=== PATIENT | female | born 1960 | race Caucasian/White ===

== ENCOUNTER 2016-06-29 20:36 | Emergency (ER) | payer BC ==
[2016-06-29 20:41] VITALS: BP 154/108; PULSE 120; TEMP 98.2; BMI 27.4
--- NOTE | 2016-06-29 20:46 | PDOC ---
[id number] 55 year old female who is presenting to the ED intoxicated s/p fall. Tonight the patient had several drinks of vodka and she fell, injuring her face. The patient presents with several lacerations along her nose and above her lip and a contusion to her forehead. The patient states she is an alcoholic. PAST MEDICAL HISTORY: alcoholism PAST SURGICAL HISTORY: no significant history FAMILY HISTORY: no pertinent history SOCIAL HISTORY: Pt lives with family and is employed. MEDICATIONS: reviewed ALLERGIES: As per nursing notes General: No fevers or chills, no weakness, no weight loss HEENT: Lacerations to the face, forehead bruising. No change in vision. No sore throat,. No ear pain CardioVascular: No chest pain or shortness of breath Respiratory:No cough, or wheezing. Gastrointestinal: no nausea, vomiting, diarrhea or constipation, No rectal bleeding Genitourinary: No dysuria, hematuria, or frequency Musculoskeletal: No joint or muscle pain or swelling Neurologic: No headache, vertigo, dizziness or loss of consciousness Psychiatric: nor depression Skin: No rashes or easy bruising Endocrine: no increased thirst or abnormal weight change Allergic: no skin or latex allergy All other systems reviewed and normal GENERAL: Alcohol on breath, intoxicated. The patient is awake, alert, and fully oriented, in no acute distress. HEAD: Contusion of the forehead. Small avulsion over the bridge of the nose with some tenderness of the nasal bones, no deformity. 4cm superficial laceration the length of the nose with no active bleeding. Superficial laceration from the opening of the left nare to the vermilion boarder of the upper lip with venous oozing. Teeth are intact. EYES: Pupils equal, round and reactive to light, extraocular movements intact, sclera anicteric, conjunctiva clear. MUSCULOSKELETAL: No sign of injury to the trunk. EXTREMITIES: No sign of injury to the extremities. Normal range of motion, no edema. NEUROLOGICAL: Normal speech, normal gait. PSYCH: Normal mood, normal affect. SKIN: Warm, Dry, normal turgor, no rashes or lesions noted. <Litzy Tobin - Last Filed: 06/29/16 21:15> - General History Source: Patient Exam Limitations: Intoxication - History of Present Illness Initial Comments: 06/29/16 21:26 Procedure note: Laceration repair with Dermabond. It is noted that patient refused laceration repair with sutures. Patient initially refused any laceration repair however I was able to convince her to let me close the lacerations with Dermabond. Lacerations were cleaned with some peroxide and then closed with Dermabond patient tolerated well. A portion of this note was documented by scribe services under my direction. I have reviewed the details of the note, within reason, and agree with the documentation. The case summary and management plan written by me. 06/29/16 22:46 CT head shows no acute intracranial pathology CT facial bones shows no acute fractures 03:00 Patient awake alert with steady gait was observed in the emergency room for 6 hours. Patient without any additional complaints. Patient called a taxi and discharged home <Padmaja Avalos I - Last Filed: 07/04/16 02:00> - General Chief Complaint: Injury Stated Complaint: FALL/INTOX Time Seen by Provider: 06/29/16 20:45 Past History <Litzy Tobin - Last Filed: 06/29/16 21:15> - Past Medical History Other medical history: DENIES - Psycho/Social/Smoking Cessation Hx Anxiety: No Suicidal Ideation: No Smoking History: Never smoked <Padmaja Avalos I - Last Filed: 07/04/16 02:00> - Past Medical History Allergies/Adverse Reactions: Allergies Allergy/AdvReac Type Severity Reaction Status Date / Time No Known Allergies Allergy Unverified 06/29/16 20:38 Home Medications: Ambulatory Orders NK [No Known Home Medication] 06/29/16 *Physical Exam - Vital Signs Last Vital Signs Temp Pulse Resp BP Pulse Ox 98.2 F 120 H 18 154/108 99 06/29/16 20:39 06/29/16 20:39 06/29/16 20:39 06/29/16 20:39 06/29/16 20:39 <Litzy Tobin - Last Filed: 06/29/16 21:15> - Vital Signs Last Vital Signs Temp Pulse Resp BP Pulse Ox 98.2 F 120 H 18 154/108 99 06/29/16 20:39 06/29/16 20:39 06/29/16 20:39 06/29/16 20:39 06/29/16 20:39 <Padmaja Avalos I - Last Filed: 07/04/16 02:00> ED Treatment Course - LABORATORY CBC & Chemistry Diagram: 06/29/16 21:10 06/29/16 21:10 <Padmaja Avalos I - Last Filed: 07/04/16 02:00> *DC/Admit/Observation/Transfer - Attestations Scribe Attestion: 06/29/16 21:20 Documentation prepared by Litzy Tobin, acting as medical billing coordinator for Padmaja Avalos MD. <Litzy Tobin - Last Filed: 06/29/16 21:15> - Discharge Dispostion Admit: No <Padmaja Avalos I - Last Filed: 07/04/16 02:00> Diagnosis at time of Disposition: Intoxication - Discharge Dispostion Disposition: HOME Condition at time of disposition: Stable - Patient Instructions Printed Discharge Instructions: DI for Laceration Repair With Dermabond Additional Instructions: Read over and follow the Dermabond instructions. Return to the emergency department immediately with ANY new, persistent or worsening symptoms. Continue any medications as previously prescribed by your physician. You should follow up with your primary doctor as soon as possible regarding today's emergency department visit. . Please make sure your doctor reviews the results of your emergency evaluation. Thank you for coming to the Emergency Department today for your care. It was a pleasure to see you today. Please note that your evaluation is INCOMPLETE until you follow-up with your doctor.
[2016-06-29 21:38] LABS: BASOPHIL 1.8 % (0-2.0); EOSINOPHIL 1.1 % (0-4.5); MCH 30.6 pg (25.7-33.7); MCHC 33.8 g/dl (32.0-36.0); MEAN CELL VOLUME 90.6 fl (80-96); NEUTROPHILS 48.8 % (42.8-82.8); PLATELET COUNT 367 K/MM3 (134-434); WHITE BLOOD COUNT 6.3 K/mm3 (4.0-10.8)
[2016-06-29 21:45] LABS: ALBUMIN 4.1 g/dl (3.5-5.0); ALK PHOS 51 U/L (32-92); ANION GAP 9 (8-16); CALCIUM 8.8 mg/dl (8.4-10.2); CO2 23 mmol/L (22-28); COCKROFT - GAULT 106.4795; CREATININE 0.7 mg/dl (0.6-1.3); GLUCOSE,RANDOM 112 mg/dl (74-106); SGOT/AST 22 U/L (10-42); SGPT/ALT 23 U/L (10-40); TOT PROT 7.2 g/dl (6.4-8.3)
[2016-06-29 22:27] LABS: BILIRUBIN,TOTAL 0.2 mg/dl (0.2-1.0)
== END 2016-06-30 03:56 | disposition home or self-care (01) ==
LOC: FER 20:36
PROC: 09QKXZZ Repair Nasal Mucosa and Soft Tissue, External Approach (ICD-10-PCS; principal; 2016-06-29)
DX: S01.21XA Laceration without foreign body of nose, initial encounter (principal); F10.120 Alcohol abuse with intoxication, uncomplicated
CPT/HCPCS: 36415; 70450-TC; 70486-TC; 80053; 80307; 85025; 99282-25